=== PATIENT | male | born 1945 | race Caucasian/White ===

== ENCOUNTER 2019-12-18 17:47 | Emergency (ER) | payer MEDICARE, BC ==
[2019-12-18 18:00] VITALS: BP 158/88; PULSE 92
[2019-12-18 19:22] LABS: ANION GAP 13.7 mEq/L (7-13); CHLORIDE,CL 108 mmol/L (98-107); SODIUM,NA 144 mmol/L (136-145)
--- NOTE | 2019-12-18 19:50 | EDM.PDOCBH ---
Scribed by Clara Coffman 12/18/19 1950 for Surjit Nelson NP ED HPI GENERAL MEDICAL PROBLEM - General Chief Complaint: Behavioral/Psych Stated Complaint: LIGHTED HEADED, FEELS BUZZING IN ARMS AND CHEST Time Seen by Provider: 12/18/19 18:20 Source of Information: Reports: Patient, RN, RN Notes Reviewed History Limitations: Reports: No Limitations - History of Present Illness INITIAL COMMENTS - FREE TEXT/NARRATIVE: A 74-year-old male with history of hypertension and palpitations who presents to the ER with complaints of lightheadedness and anxiety evaluation x1 hour. He states that he was at work this morning and started feeling lightheaded and feeling "just not right". 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 At home he checked his blood pressure and it was in the 150s. He reports his anxiety kicked in. He also states that something did not feel right so he checked his blood pressure again and it was high. His drove him to the ER for evaluation. He denies any chest pain, shortness of breath, fevers, chills, nausea, vomiting, abdominal problems, urinary problems or any triggering factors. He states he had an instance like this once, but it resolved on its own. His father had similar symptoms and he was taking medications. Patient also reports he has been working on a lot of projects lately and he is stressed. Onset: Today Duration: Constant Location: Reports: Generalized Quality: Reports: Ache Severity: Moderate Improves with: Reports: None Worsens with: Reports: None Associated Symptoms: Reports: No Other Symptoms - Related Data Allergies Allergy/AdvReac Type Severity Reaction Status Date / Time No Known Allergies Allergy Verified 12/18/19 17:58 Home Meds: Home Meds Valsartan/Hydrochlorothiazide [Valsartan-Hctz 160-25 mg Tab] 1 tab PO DAILY 02/27/15 [History] RX: Aspirin [Adult Low Dose Aspirin EC] 81 mg PO DAILY 02/28/15 [History] L.acidoph,Paracasei, B.lactis [Probiotic] 1 cap PO DAILY 03/01/15 [History] RX: Simethicone [Gas-X] 80 mg PO ASDIRECTED PRN 03/01/15 [History] Past Medical History Hematologic History: Reports: None Immunologic History: Reports: None Oncologic (Cancer) History: Reports: None - Infectious Disease History Infectious Disease History: Reports: None - Past Surgical History Head Surgeries/Procedures: Reports: None Social & Family History - Family History Family Medical History: Noncontributory - Tobacco Use Smoking Status *Q: Unknown Ever Smoked ED ROS GENERAL - Review of Systems Review Of Systems: Comprehensive ROS is negative, except as noted in HPI. ED EXAM, BEHAVIORAL HEALTH - Physical Exam Exam: See Below Exam Limited By: No Limitations General Appearance: Alert, WD/WN, No Apparent Distress Eye Exam: Bilateral Eye: Normal Inspection Ears: Normal External Exam, Normal Canal, Hearing Grossly Normal, Normal TMs Nose: Normal Inspection, Normal Mucosa, No Blood Throat/Mouth: Normal Inspection, Normal Lips, Normal Teeth, Normal Gums, Normal Oropharynx, Normal Voice, No Airway Compromise Head: Atraumatic, Normocephalic Neck: Normal Inspection, Supple, Non-Tender, Full Range of Motion Respiratory/Chest: No Respiratory Distress, Lungs Clear, Normal Breath Sounds, No Accessory Muscle Use, Chest Non-Tender Cardiovascular: Normal Peripheral Pulses, Regular Rate, Rhythm, No Edema, No Gallop, No JVD, No Murmur, No Rub GI/Abdominal: Normal Bowel Sounds, Soft, Non-Tender, No Organomegaly, No Distention, No Abnormal Bruit, No Mass (Male) Exam: Deferred Rectal (Males) Exam: Deferred Back Exam: Normal Inspection, Full Range of Motion, NT Extremities: Normal Inspection, Normal Range of Motion, Non-Tender, Normal Capillary Refill, No Pedal Edema Neurological: Alert, Normal Mood/Affect, CN II-XII Intact, Normal Cognition, Normal Gait, Normal Reflexes, No Motor/Sensory Deficits, Oriented x 3 Psychiatric: Alert, Normal Affect, Normal Cognition, Normal Mood, Oriented Skin Exam: Warm, Dry, Intact, Normal color, No rash COURSE, BEHAVIORAL HEALTH COMP - Course Vital Signs: Last Vital Signs Temp 97.4 F 12/18/19 17:59 Pulse 92 12/18/19 17:59 Resp 16 12/18/19 17:59 BP 158/88 H 12/18/19 17:59 Pulse Ox 100 12/18/19 17:59 Orders, Labs, Meds: Active Orders 24 hr Category Date Time Status EKG 12 Lead [EKG Documentation Completion] [RC] STAT Care 12/18/19 17:58 Active Laboratory Tests 12/18/19 12/18/19 Range/Units 18:55 18:55 WBC 6.7 (5.0-10.0) 10^3/uL RBC 4.55 L (4.6-6.2) 10^6/uL Hgb 13.8 L (14.0-18.0) g/dL Hct 40.5 (40.0-54.0) % MCV 89.0 (80-100) fL MCH 30.3 (27.0-34.0) pg MCHC 34.1 (33.0-35.0) g/dL Plt Count 196 (150-450) 10^3/uL Neut % (Auto) 62.7 (42.2-75.2) % Lymph % (Auto) 26.3 (20.5-50.1) % Whiteside % (Auto) 6.8 (2-8) % Eos % (Auto) 3.3 H (1.0-3.0) % Baso % (Auto) 0.9 (0.0-1.0) % Sodium 144 (136-145) mmol/L Potassium 3.7 (3.5-5.1) mmol/L Chloride 108 H (98-107) mmol/L Carbon Dioxide 26 (21-32) mmol/L Anion Gap 13.7 H (7-13) mEq/L BUN 21 H (7-18) mg/dL Creatinine 1.24 (0.70-1.30) mg/dL Est Cr Clr Drug Dosing 50.68 mL/min Estimated GFR (MDRD) 57 BUN/Creatinine Ratio 16.9 (No establ ref range) Glucose 99 (74-99) mg/dL Calcium 8.6 (8.5-10.1) mg/dL Total Bilirubin 0.6 (0.2-1.0) mg/dL AST 22 (15-37) U/L ALT 26 (16-63) U/L Alkaline Phosphatase 51 (46-116) U/L Troponin I < 0.017 (0.000-0.056) ng/mL Total Protein 6.2 L (6.4-8.2) g/dL Albumin 3.6 (3.4-5.0) g/dL Globulin 2.6 Albumin/Globulin Ratio 1.4 Re-Assessment/Re-Exam: Reviewed exam findings and lab results with patient. Encouraged him to push fluids and continue taking his medications as prescribed. Symptoms to return to the ER reviewed with the patient. Follow up with PCP. Departure - Departure Time of Disposition: 19:49 Disposition: Home, Self-Care 01 Condition: Good Clinical Impression: Anxiety - Discharge Information Instructions: Living With Anxiety Forms: ED Department Discharge Additional Instructions: Encouraged him to push fluids and continue taking his medications as prescribed. Symptoms to return to the ER reviewed with the patient. Follow up with PCP. Sepsis Event Note (ED) - Evaluation Sepsis Screening Result: No Definite Risk - Focused Exam Vital Signs: Vital Signs Temp Pulse Resp BP Pulse Ox 12/18/19 17:59 97.4 F 92 16 158/88 H 100 - My Orders Last 24 Hours: My Active Orders 12/18/19 17:58 EKG 12 Lead [EKG Documentation Completion] [RC] STAT - Assessment/Plan Last 24 Hours: My Active Orders 12/18/19 17:58 EKG 12 Lead [EKG Documentation Completion] [RC] STAT I have read and agree with the documentation that has been completed regarding this visit. By signing this record, I attest that the documentation was completed in my physical presence and is an accurate record of the encounter.
== END 2019-12-18 19:56 | disposition home or self-care (01) ==
LOC: DL.ED 17:47
DX: F41.9 Anxiety disorder, unspecified (principal); I10 Essential (primary) hypertension; Z79.899 Other long term (current) drug therapy
CPT/HCPCS: 36415; 80053; 84484; 85025; 93005; 99284-25

== ENCOUNTER 2024-04-17 18:08 | Emergency (ER) | payer MEDICARE, BC ==
[2024-04-17 21:39] VITALS: BP 141/62; PULSE 63
== END 2024-04-17 21:37 | disposition home or self-care (01) ==
LOC: DL.ED 18:08
DX: G54.9 Nerve root and plexus disorder, unspecified (principal); R55 Syncope and collapse; I10 Essential (primary) hypertension; Z86.73 Personal history of transient ischemic attack (TIA), and cerebral infarction without residual deficits; Z79.82 Long term (current) use of aspirin; Z79.899 Other long term (current) drug therapy
CPT/HCPCS: 72052; 99283